=== PATIENT | female | born 1960 | race Caucasian/White ===

== ENCOUNTER 2018-07-15 20:19 | Emergency (ER) | payer MEDICARE, MEDICAID ==
[~2018-07-15] VITALS: Ht 152.4 cm; Wt 59.0 kg
[~2018-07-15 20:19] MED LIST: ALBU2TAB4 NEB; AMLO5TAB13 PO; GUAI600T23 PO; HYDR25TA4 PO; METO25TA5 PO; MONT4CHW9 PO; POM EACHNOSTRI; TRAZ100T2 PO
[2018-07-15 20:28] VITALS: BP 123/89
[2018-07-15] MEDS ORDERED: HYDROcodone-ACET 5/325MG TAB PO ONE (20:45)
== END 2018-07-15 22:39 | disposition home or self-care (01) ==
LOC: ER 20:19
DX: M25.571 Pain in right ankle and joints of right foot (principal); J44.9 Chronic obstructive pulmonary disease, unspecified; I10 Essential (primary) hypertension; F17.210 Nicotine dependence, cigarettes, uncomplicated; Z90.49 Acquired absence of other specified parts of digestive tract; Z88.1 Allergy status to other antibiotic agents; Z79.899 Other long term (current) drug therapy
CPT/HCPCS: 73600

== ENCOUNTER 2019-03-30 08:58 | Emergency (ER) | payer MEDICARE, MEDICAID ==
[~2019-03-30] VITALS: Ht 152.4 cm; Wt 63.5 kg
[~2019-03-30 08:58] MED LIST changes: -AMLO5TAB13 PO; +AMLO5TAB15 PO; +ARIP1TAB7 PO; +ESCI10TA PO; -GUAI600T23 PO; +HYDR-3682 PO; +LEVO500T21 PO; +TRAZ-220 PO; -TRAZ100T2 PO
[2019-03-30 10:22] LABS: Anion Gap 8 (5-15); Blood Urea Nitrogen 13 mg/dL (7-18); Carbon Dioxide 29 mmol/L (21-32); Chloride 100 mmol/L (98-107); Glucose 104 mg/dL (74-106); Magnesium 2.3 mg/dL (1.6-2.6); Potassium 3.1 mmol/L (3.5-5.1); Sodium 137 mmol/L (136-145)
[2019-03-30 10:27] LABS: Alanine Aminotransferase 15 U/L (13-56); Alkaline Phosphatase 87 U/L (45-117); Aspartate Aminotransferase 17 U/L (15-37); BUN/Creatinine Ratio 11.2; Bilirubin, Total 0.5 mg/dL (0.2-1.0); GFR African American 62 mL/min; GFR Non-African American 51 mL/min; Total Protein 8.1 g/dL (6.4-8.2)
[2019-03-30] MEDS ORDERED: predniSONE 20 MG TAB PO ONE (11:15)
[2019-03-30 11:23] LABS: Basophils # (auto) 0.1 uL; Basophils % (auto) 0.8 % (0.0-2.0); Eosinophils # (auto) 0.3 uL; Eosinophils % (auto) 3.4 % (0.0-7.0); Hematocrit 28.8 % (36.0-46.0); Hemoglobin 9.7 g/dL (12.2-16.2); Lymphocytes # (auto) 1.6 uL; Lymphocytes % (auto) 20.4 % (10.0-50.0); Mean Corpuscular Hemoglobin 27.8 pg (28.0-32.0); Mean Corpuscular Hgb Conc. 33.8 g/dL (32.0-36.0); Mean Corpuscular Volume 82.2 fL (80.0-100.0); Monocytes # (auto) 0.6 uL; Monocytes % (auto) 7.5 % (0.0-12.0); Neutrophils # (auto) 5.3 uL; Neutrophils % (auto) 67.9 % (37.0-80.0); Platelet Count (auto) 403 10^3/uL (140-450); Red Cell Distribution Width 15.4 % (11.8-14.3); White Blood Cell 7.8 10^3/uL (4.4-10.8)
[2019-03-30 11:44] LABS: INR 1.01 (0.9-1.15); Partial Thromboplastin Time 27.1 sec (23.64-32.05)
[2019-03-30 12:31] LABS: Urine Bacteria NONE SEEN /hpf (None Seen); Urine Blood Negative /uL (Negative); Urine Specific Gravity 1.005 (1.001-1.035); Urine WBC 6 /hpf (0 - 5)
[2019-03-30 13:25] VITALS: BP 131/81
== END 2019-03-30 13:20 | disposition home or self-care (01) ==
LOC: ER 08:58
DX: G51.0 Bell's palsy (principal); J44.9 Chronic obstructive pulmonary disease, unspecified; I10 Essential (primary) hypertension; F17.210 Nicotine dependence, cigarettes, uncomplicated; Z90.49 Acquired absence of other specified parts of digestive tract
CPT/HCPCS: 36415; 70450; 71046; 80053; 81001; 83735; 83880; 84484; 85025; 85610; 85730; 93005; 94761; 99284; J7512

== ENCOUNTER 2019-05-19 08:03 | Emergency (ER) | payer MEDICARE, MEDICAID ==
[~2019-05-19] VITALS: Ht 152.4 cm; Wt 61.7 kg
[2019-05-19 08:18] VITALS: BP 122/81
[2019-05-19] MEDS ORDERED: KETOROLAC TROMETH 60MG/2ML VIAL IM ONE (09:15)
== END 2019-05-19 09:30 | disposition home or self-care (01) ==
LOC: ER 08:05
DX: S93.402A Sprain of unspecified ligament of left ankle, initial encounter (principal); J44.9 Chronic obstructive pulmonary disease, unspecified; I10 Essential (primary) hypertension; F17.210 Nicotine dependence, cigarettes, uncomplicated; F12.90 Cannabis use, unspecified, uncomplicated; Z88.1 Allergy status to other antibiotic agents; Z79.899 Other long term (current) drug therapy; Z90.49 Acquired absence of other specified parts of digestive tract
CPT/HCPCS: 73610; 96372; 99283; J1885

== ENCOUNTER 2019-10-21 14:02 | Inpatient (IN) | payer MEDICARE, MEDICAID ==
[~2019-10-21] VITALS: Ht 152.4 cm; Wt 68.1 kg
[~2019-10-21 14:02] MED LIST changes: +BACL10TA PO; +FLUC100T34 PO; +GABA300C10 PO; -HYDR-3682 PO; +LEV50T PO; -LEVO500T21 PO; -METO25TA5 PO; -MONT4CHW9 PO; +POM; -POM EACHNOSTRI; -TRAZ-220 PO
[2019-10-21] MEDS ORDERED: ALBUTEROL SULF 2.5 MG/0.5ML(0.5%) NEB SOLN NEB ONE ×2 (14:15→16:15)
[2019-10-21] MEDS ORDERED: IPRATROPIUM BROM 0.5 MG/2.5ML INH SOL NEB ONE ×2 (14:15→16:15)
[2019-10-21 14:36] LABS: Basophils # (auto) 0 10 ^3/uL (0-0.2); Basophils % (auto) 0.7 % (0.0-2.0); Eosinophils # (auto) 0.1 10 ^3/uL (0-0.8); Eosinophils % (auto) 2.5 % (0.0-7.0); Hematocrit 41.5 % (36.0-46.0); Hemoglobin 14.2 g/dL (12.2-16.2); Lymphocytes % (auto) 18.4 % (10.0-50.0); Mean Corpuscular Hemoglobin 29.9 pg (28.0-32.0); Mean Corpuscular Hgb Conc. 34.1 g/dL (32.0-36.0); Mean Corpuscular Volume 87.7 fL (80.0-100.0); Monocytes # (auto) 0.6 10 ^3/uL (0-1.3); Monocytes % (auto) 10.5 % (0.0-12.0); Neutrophils # (auto) 3.6 10 ^3/uL (1.6-8.6); Neutrophils % (auto) 67.9 % (37.0-80.0); Nucleated Red Blood Cells % 0.2 %; Platelet Count (auto) 265 10^3/uL (140-450); Red Blood Cells 4.73 10^6/uL (4.0-5.20); Red Cell Distribution Width 15.1 % (11.8-14.3); White Blood Cell 5.4 10^3/uL (4.4-10.8)
[2019-10-21 14:52] LABS: Alanine Aminotransferase 20 U/L (13-56); Albumin 3.7 g/dL (3.4-5.0); Anion Gap 6 (5-15); Aspartate Aminotransferase 21 U/L (15-37); BUN/Creatinine Ratio 13.5; Blood Urea Nitrogen 10 mg/dL (7-18); Calcium 8.7 mg/dL (8.5-10.1); Carbon Dioxide 25 mmol/L (21-32); Chloride 105 mmol/L (98-107); GFR African American 103 mL/min; GFR Non-African American 85 mL/min; Glucose 126 mg/dL (74-106); Potassium 3.4 mmol/L (3.5-5.1); Sodium 136 mmol/L (136-145)
[2019-10-21 14:59] LABS: Alkaline Phosphatase 84 U/L (45-117); Bilirubin, Total 0.5 mg/dL (0.2-1.0); Total Protein 7.9 g/dL (6.4-8.2)
[2019-10-21] MEDS ORDERED: methylPREDNISolone SOD SUCC 125 MG/2 ML VL IV ONE (16:15)
[2019-10-21] MEDS ORDERED: cefTRIAXone 1GM/50ML D5W 50 ML IV ONE (16:15)
[2019-10-21] MEDS ORDERED: ONDANSETRON HCL 4 MG/2 ML VIAL IV PRN (20:45)
[2019-10-21] MEDS ORDERED: POTASSIUM CHL 20 Meq TABLET PO ONE (20:45)
[2019-10-21 20:51] VITALS: BP 131/89
[2019-10-21] MEDS ORDERED: MORPHINE SULF INJ 2 MG/ML SYRINGE 1ML IV PRN (21:30)
[2019-10-21] MEDS ORDERED: NITROGLYCERIN 0.4 MG SL TAB SL PRN (21:30)
[2019-10-21 21:52] LABS: Urine WBC None Seen /hpf (0 - 5)
[2019-10-21] MEDS: TEMAZEPAM 15 MG CAP PO PRN (22:21)
[2019-10-21 22:22] LABS: Urine Bacteria NONE SEEN /hpf (None Seen); Urine Blood Negative /uL (Negative); Urine Specific Gravity 1.012 (1.001-1.035)
[2019-10-21] MEDS: FAMOTIDINE 20 MG TAB PO SCH (22:47)
[2019-10-21 22:50] VITALS: BP 142/93
--- NOTE | 2019-10-21 23:00 | NUR ---
Telemetry admit from ER TONG PURCELL admitted to Telemetry unit. Patient oriented to Danica strickland RN, unit, room, bed, and unit policies regarding patient care and visiting hours. Patient now on continuous telemetry monitoring, tele box #[id number] and telemetry reading on arrival to unit is SINUS RHYTHM. Patient placed on bedside oxygen, weighed by bedscale and encouraged to call if they need something. All questions and concerns addressed, patient verbalized understanding.
[2019-10-21] MEDS ORDERED: ASPI-231 PO (23:58)
[2019-10-21] MEDS ORDERED: ALPR0.254 PO (23:59)
[2019-10-22] MEDS: IPRATROPIUM BROM 0.5 MG/2.5ML INH SOL NEB SCH ×5 (00:09→23:46)
[2019-10-22] MEDS: ALBUTEROL SULF 2.5 MG/0.5ML(0.5%) NEB SOLN NEB SCH ×5 (00:09→23:46)
[2019-10-22] MEDS: ACETAMINOPHEN 325 MG TAB PO PRN (02:13)
[2019-10-22 03:11] VITALS: BP 128/82
--- NOTE | 2019-10-22 05:40 | NUR ---
SOB PATIENT WOKE UP COUGHING, BEGAN WHEEZING AND HAVING SOB SPO2 AT 91% ON 2L NASAL CANNULA. PATIENT RR AT 28/MIN EDUCATED PATIENT TO TAKE DEEP BREATHS, FOCUS ON BREATHING. RT PAGED FOR BREATHING TREATMENT
[2019-10-22 06:11] VITALS: BP 129/80
[2019-10-22] MEDS: LEVOTHYROXINE SODIUM 50 MCG TAB PO SCH (06:11)
[2019-10-22 06:43] LABS: Basophils # (auto) 0 10 ^3/uL (0-0.2); Basophils % (auto) 0.1 % (0.0-2.0); Eosinophils # (auto) 0 10 ^3/uL (0-0.8); Hematocrit 39.4 % (36.0-46.0); Hemoglobin 13.4 g/dL (12.2-16.2); Lymphocytes # (auto) 0.7 10 ^3/uL (0.4-5.4); Mean Corpuscular Hemoglobin 30.2 pg (28.0-32.0); Mean Corpuscular Hgb Conc. 33.9 g/dL (32.0-36.0); Mean Corpuscular Volume 88.9 fL (80.0-100.0); Monocytes # (auto) 0.1 10 ^3/uL (0-1.3); Monocytes % (auto) 2.5 % (0.0-12.0); Neutrophils # (auto) 4.8 10 ^3/uL (1.6-8.6); Neutrophils % (auto) 84.4 % (37.0-80.0); Nucleated Red Blood Cells % 0.1 %; Platelet Count (auto) 271 10^3/uL (140-450); Red Blood Cells 4.43 10^6/uL (4.0-5.20); Red Cell Distribution Width 14.9 % (11.8-14.3); White Blood Cell 5.7 10^3/uL (4.4-10.8)
--- NOTE | 2019-10-22 06:55 | NUR ---
RT AT BEDSIDE PATIENT GETTING BREATHING TREATMENT
[2019-10-22 06:56] LABS: Calcium 8.9 mg/dL (8.5-10.1); Potassium 3.7 mmol/L (3.5-5.1)
[2019-10-22 06:58] LABS: BUN/Creatinine Ratio 17.6
--- NOTE | 2019-10-22 07:29 | NUR ---
CLOSING PATIENT RESTING IN BED, NO SIGNS OF DISTRESS NOTED. CARE ENDORSED TO DAYSHIFT RN. ENDORSED TO DAYSHIFT RN THAT PATIENT WANTS HER HOME MEDS INPATIENT. PATIENT WORRIED ABOUT GETTING HER DAILY XANAX, GABAPENTIN, AND BP MEDICATIONS. MED REC COMPLETED.
[2019-10-22] MEDS: cefTRIAXone 1GM/50ML D5W 50 ML IV SCH (08:46)
[2019-10-22] MEDS: FAMOTIDINE 20 MG TAB PO SCH ×2 (08:47→21:32)
[2019-10-22] MEDS: amLODIPine BESYLATE 5 MG TAB PO SCH (08:47)
[2019-10-22 09:12] VITALS: BP 133/76
--- NOTE | 2019-10-22 12:00 | NUR ---
IV insertion IV access obtained, via clean sterile technique by inserting 22 gauge catheter at left forearm after 1 attempt. IV secured properly. No trauma to site. Patient tolerated well.
[2019-10-22] MEDS ORDERED: AZITHROMYCIN 500MG/ 250ML 250 ML IV ONE (12:30)
[2019-10-22 12:50] VITALS: BP 138/88
[2019-10-22] MEDS: methylPREDNISolone SOD SUCC 125 MG/2 ML VL IV SCH ×2 (12:54→21:32)
[2019-10-22] MEDS: ALPRAZolam 0.5 MG TAB PO PRN ×2 (12:56→20:58)
[2019-10-22 13:13] LABS: Amphetamine Screen, Urine NEGATIVE (NEGATIVE); Barbiturate Scree,Urine NEGATIVE (NEGATIVE); Benzodiazephine Screen, Urine NEGATIVE (NEGATIVE); Cannabinoid Screen, Urine NEGATIVE (NEGATIVE); Cocaine Screen, Urine NEGATIVE (NEGATIVE); Opiate Scree,Urine NEGATIVE (NEGATIVE); Phencyclidine Screen, Urine NEGATIVE (NEGATIVE)
[2019-10-22 16:59] VITALS: BP 126/87
[2019-10-22] MEDS: BUDESONIDE (INHALATION) 0.5 MG/2 ML NEB NEB SCH (18:09)
--- NOTE | 2019-10-22 19:30 | NUR ---
OPENING NOTE REPORT RECEIVED FROM DAY SHIFT RN PATIENT IS A/OX4 RESTING COMFORTABLY IN BED. ACCORDION DRAINAGE REMOVED TODAY. DRESSING TO LEFT ABDOMEN IS CLEAN/DRY/INTACT. PATIENT DENIES ANY PAIN TO SITE. POC DISCUSSED WITH PATIENT, ALL QUESTIONS ANSWERED. WILL MONITOR Q1H PRN THROUGHOUT SHIFT, CALL LIGHT WITHIN REACH. Addendum: 10/22/19 at 2106 by Danica Melvin RN DISREGARD NOTE WRONG PATIENT
--- NOTE | 2019-10-22 19:31 | NUR ---
OPENING NOTE REPORT RECEIVED FROM DAY SHIFT RN PATIENT IS A/OX4 RESTING IN BED. NO S/S OF SOB OR DISTRESS NOTED. PATIENT ON 2L NASAL CANNULA. PATIENT STATES SHE JUST RECEIVED HER BREATHING TREATMENT. IV INTACT AND PATENT TO LEFT FOREARM. PHYSICAL ASSESSMENT DONE-SEE INTERVENTIONS. POC DISCUSSED, ALL QUESTIONS ANSWERED. WILL MONITOR Q1H PRN THROUGHOUT SHIFT, CALL LIGHT WITHIN REACH.
[2019-10-22 22:00] VITALS: BP 136/96
[2019-10-22] MEDS ORDERED: ALBUTEROL SULF 2.5 MG/0.5ML(0.5%) NEB SOLN NEB PRN (22:15)
[2019-10-23] MEDS: TEMAZEPAM 15 MG CAP PO PRN ×2 (00:49→21:08)
[2019-10-23 05:00] VITALS: BP 150/81
[2019-10-23] MEDS: BUDESONIDE (INHALATION) 0.5 MG/2 ML NEB NEB SCH ×2 (06:41→22:15)
[2019-10-23] MEDS: IPRATROPIUM BROM 0.5 MG/2.5ML INH SOL NEB SCH ×5 (06:41→22:14)
[2019-10-23] MEDS: ALBUTEROL SULF 2.5 MG/0.5ML(0.5%) NEB SOLN NEB SCH ×5 (06:41→22:14)
[2019-10-23] MEDS: LEVOTHYROXINE SODIUM 50 MCG TAB PO SCH (07:01)
--- NOTE | 2019-10-23 07:26 | NUR ---
CLOSING PATIENT IS RESTING IN BED, JUST RECEIVED BREATHING TREATMENT FROM RT. CARE ENDORSED TO DAY SHIFT RN TO ASSUME CARE
--- NOTE | 2019-10-23 08:00 | NUR ---
Morning note patient resting in bed with even and unlabored respirations on 2LPM NC, no distress noted. Instructed patient on POC, fall precautions and to call for assistance as needed. Patient verbalized understanding. Fall precautions in place with call light within reach. BSC at bedside.
[2019-10-23 09:00] VITALS: BP 120/76
[2019-10-23] MEDS: FAMOTIDINE 20 MG TAB PO SCH ×2 (09:45→21:08)
[2019-10-23] MEDS: ALPRAZolam 0.5 MG TAB PO PRN ×2 (09:45→18:58)
[2019-10-23] MEDS: methylPREDNISolone SOD SUCC 125 MG/2 ML VL IV SCH ×2 (09:45→21:08)
[2019-10-23] MEDS: ACETAMINOPHEN 325 MG TAB PO PRN (09:45)
[2019-10-23] MEDS: cefTRIAXone 1GM/50ML D5W 50 ML IV SCH (09:45)
[2019-10-23] MEDS: amLODIPine BESYLATE 5 MG TAB PO SCH (09:45)
--- NOTE | 2019-10-23 09:45 | NUR ---
RE: Medications This RN scanned medications at bedside although documentation was not saved. Medication administration documented accordingly.
[2019-10-23] MEDS: AZITHROMYCIN 500MG/ 250ML 250 ML IV SCH (10:30)
--- NOTE | 2019-10-23 12:11 | NUR ---
was at bedside - Dr. Estelle Herrera This RN was at bedside. Orders received and read back to verify.
[2019-10-23 13:00] VITALS: BP 120/86
--- NOTE | 2019-10-23 13:31 | NUR ---
RE: Medications This RN removed PRN pain medication and PRN cough medication to administer to patient for reported pain and coughing. Upon entering patient's room, patient is resting in a right lateral position with eyes closed, respirations even and unlabored with no distress noted. Call light within reach. Medications returned to medication pyxis.
[2019-10-23] MEDS: guaiFENesin-DM 100/10mg/5ml SYR PO PRN (16:03)
[2019-10-23] MEDS: HYDROcodone-ACET 5/325MG TAB PO PRN (16:05)
[2019-10-23 17:00] VITALS: BP 123/76
--- NOTE | 2019-10-23 18:59 | NUR ---
Closing note patient sitting in bed with labored breathing, patient able to speak in sentences. Patient reports she just returned to bed after using the BSC. Pulse ox 88% on 2LPM NC. RT at bedside for breathing treatment. Fall precautions in place with call light within reach.
--- NOTE | 2019-10-23 19:15 | NUR ---
Care endorsed to EUSEBIO Felton.
[2019-10-23 22:00] VITALS: BP 120/72
[2019-10-24] VITALS (7 sets, daily range): BP systolic 117–165; BP diastolic 74–106
[2019-10-24] MEDS: ALBUTEROL SULF 2.5 MG/0.5ML(0.5%) NEB SOLN NEB SCH ×6 (02:03→22:12)
[2019-10-24] MEDS: IPRATROPIUM BROM 0.5 MG/2.5ML INH SOL NEB SCH ×6 (02:03→22:12)
[2019-10-24] MEDS: HYDROcodone-ACET 5/325MG TAB PO PRN ×3 (02:34→19:37)
[2019-10-24] MEDS: guaiFENesin-DM 100/10mg/5ml SYR PO PRN ×2 (02:34→17:45)
[2019-10-24] MEDS: LEVOTHYROXINE SODIUM 50 MCG TAB PO SCH (06:33)
--- NOTE | 2019-10-24 08:03 | NUR ---
received patient from retail shift supervisor. patient alert and oriented. no complaints of pain at this time
[2019-10-24] MEDS: cefTRIAXone 1GM/50ML D5W 50 ML IV SCH (08:22)
[2019-10-24] MEDS: ALPRAZolam 0.5 MG TAB PO PRN ×2 (09:56→18:05)
[2019-10-24] MEDS: FAMOTIDINE 20 MG TAB PO SCH ×2 (09:57→22:50)
[2019-10-24] MEDS: amLODIPine BESYLATE 5 MG TAB PO SCH (09:57)
[2019-10-24] MEDS: BUDESONIDE (INHALATION) 0.5 MG/2 ML NEB NEB SCH ×2 (11:06→22:12)
--- NOTE | 2019-10-24 16:36 | NUR ---
MIDLINE 20cm internally w/ 0cm externally.
--- NOTE | 2019-10-24 16:36 | NUR ---
MIDLINE placement Patient/Patient significant other educated on need for MIDLINE placement. All risks and benefits explained and all questions and concerns addressed prior to procedure. Noted past medical history and allergies with no contraindications. INR and Plt counts within acceptable range. 4 fr MIDLINE inserted via right brachial vein using [employer] US and Tip Location System. Sterile technique with maximum barrier precautions utilized. Blood return obtained from the single lumen and it flushed easily with NS using proper technique. MIDLINE secured with Stat-lock; biodisc and occlusive dressing applied. Less than 5ml EBL noted during procedure. *Baseline Arm Circumference 31cm at 1cm above insertion site. PICC lot # [id number]. Note:
--- NOTE | 2019-10-24 16:37 | NUR ---
OK to use MIDLINE Jalen Clifton. notified now OK to use MIDLINE.
[2019-10-24] MEDS: AZITHROMYCIN 500MG/ 250ML 250 ML IV SCH (16:47)
[2019-10-24] MEDS: methylPREDNISolone SOD SUCC 125 MG/2 ML VL IV SCH ×2 (16:47→22:50)
[2019-10-24] MEDS: TEMAZEPAM 15 MG CAP PO PRN (22:51)
[2019-10-25] MEDS: ALBUTEROL SULF 2.5 MG/0.5ML(0.5%) NEB SOLN NEB SCH ×6 (03:30→22:22)
[2019-10-25] MEDS: IPRATROPIUM BROM 0.5 MG/2.5ML INH SOL NEB SCH ×6 (03:30→22:22)
[2019-10-25 05:00] VITALS: BP 114/76
[2019-10-25] MEDS: LEVOTHYROXINE SODIUM 50 MCG TAB PO SCH (06:29)
[2019-10-25] MEDS: BUDESONIDE (INHALATION) 0.5 MG/2 ML NEB NEB SCH ×2 (06:29→22:22)
[2019-10-25 08:00] VITALS: BP 150/93
[2019-10-25 08:57] VITALS: BP 150/93
[2019-10-25] MEDS: cefTRIAXone 1GM/50ML D5W 50 ML IV SCH (09:23)
[2019-10-25] MEDS: AZITHROMYCIN 500MG/ 250ML 250 ML IV SCH (10:40)
[2019-10-25] MEDS: amLODIPine BESYLATE 5 MG TAB PO SCH (10:40)
[2019-10-25] MEDS: methylPREDNISolone SOD SUCC 125 MG/2 ML VL IV SCH ×2 (10:40→21:38)
[2019-10-25] MEDS: FAMOTIDINE 20 MG TAB PO SCH ×2 (10:41→21:38)
[2019-10-25 12:30] VITALS: BP 121/67
[2019-10-25] MEDS: ALPRAZolam 0.5 MG TAB PO PRN (15:16)
[2019-10-25] MEDS: guaiFENesin-DM 100/10mg/5ml SYR PO PRN (15:17)
[2019-10-25 17:14] VITALS: BP 120/64
[2019-10-25] MEDS: HYDROcodone-ACET 5/325MG TAB PO PRN ×3 (20:00→21:19)
[2019-10-25] MEDS: TEMAZEPAM 15 MG CAP PO PRN (21:38)
[2019-10-25 22:00] VITALS: BP 137/85
[2019-10-26] MEDS: ALPRAZolam 0.5 MG TAB PO PRN ×2 (00:11→15:03)
[2019-10-26] MEDS: IPRATROPIUM BROM 0.5 MG/2.5ML INH SOL NEB SCH ×4 (02:41→14:33)
[2019-10-26] MEDS: ALBUTEROL SULF 2.5 MG/0.5ML(0.5%) NEB SOLN NEB SCH ×4 (02:41→14:33)
[2019-10-26 05:00] VITALS: BP 131/92
[2019-10-26] MEDS: LEVOTHYROXINE SODIUM 50 MCG TAB PO SCH (06:34)
[2019-10-26 08:00] VITALS: BP 126/90
--- NOTE | 2019-10-26 08:00 | NUR ---
PATIENT ALERT AND RELAXING. NO SIGNS OF DISTRESS AT THIS TIME
[2019-10-26 08:44] VITALS: BP 126/90
[2019-10-26] MEDS: cefTRIAXone 1GM/50ML D5W 50 ML IV SCH (09:15)
[2019-10-26] MEDS ORDERED: AZITHROMYCIN 250 MG TAB PO SCH (10:00)
[2019-10-26] MEDS: methylPREDNISolone SOD SUCC 125 MG/2 ML VL IV SCH (10:14)
[2019-10-26] MEDS: amLODIPine BESYLATE 5 MG TAB PO SCH (10:15)
[2019-10-26] MEDS: FAMOTIDINE 20 MG TAB PO SCH (10:16)
[2019-10-26] MEDS: BUDESONIDE (INHALATION) 0.5 MG/2 ML NEB NEB SCH (10:25)
[2019-10-26 12:56] VITALS: BP 142/106
[2019-10-26 14:08] VITALS: BP 142/106
--- NOTE | 2019-10-26 15:12 | NUR ---
ALL IV ACCESS DISCONTINUED. TELEMETRY BOX REMOVED AND RETURNED TO TELEMETRY DEPARTMENT. ALL DISCHARGE INSTRUCTIONS GIVEN. ALL DISCHARGE PAPERWORK SIGNED.
--- NOTE | 2019-10-26 15:35 | NUR ---
PATIENT DISCHARGED HOME WITH NEIGHBOR
== END 2019-10-26 15:30 | disposition home or self-care (01) | DRG 189 ==
LOC: ER 14:02 → TELE 14:03 → TELE-WESTW 22:50
PROVIDERS: ADMIT Nurse Practitioner; ATTEND Family Medicine
DX: J96.21 Acute and chronic respiratory failure with hypoxia (principal); J44.1 Chronic obstructive pulmonary disease with (acute) exacerbation; J44.0 Chronic obstructive pulmonary disease with (acute) lower respiratory infection; I10 Essential (primary) hypertension; E87.6 Hypokalemia; E03.9 Hypothyroidism, unspecified; F41.9 Anxiety disorder, unspecified; G89.4 Chronic pain syndrome; F12.90 Cannabis use, unspecified, uncomplicated; J20.9 Acute bronchitis, unspecified; F17.210 Nicotine dependence, cigarettes, uncomplicated; F31.9 Bipolar disorder, unspecified; Z82.49 Family history of ischemic heart disease and other diseases of the circulatory system; Z83.3 Family history of diabetes mellitus; Z99.81 Dependence on supplemental oxygen; Z90.49 Acquired absence of other specified parts of digestive tract
CPT/HCPCS: 36415; 36600; 71046; 80048; 80053; 80307; 81001; 82805; 83605; 84484; 85025; 87804; 93005; 94640; 96365; 96366; 96375; 97116; 97163; 97530; G0378; J0696

== ENCOUNTER 2020-06-28 06:45 | Inpatient (IN) | payer MEDICARE, MEDICAID ==
[~2020-06-28] VITALS: Ht 152.4 cm; Wt 64.8 kg
[~2020-06-28 06:45] MED LIST changes: +ALPR0.254 PO; -AMLO5TAB15 PO; -ARIP1TAB7 PO; +ASPI-231 PO; -BACL10TA PO; -ESCI10TA PO
[2020-06-28] MEDS ORDERED: cefTRIAXone 1GM/50ML D5W 50 ML IV ONE (11:15)
[2020-06-28] MEDS ORDERED: SODIUM CHLORIDE 0.9% 1,000 ML IV ONE (11:15)
[2020-06-28 12:22] LABS: Basophils # (auto) 0.1 10 ^3/uL (0-0.2); Basophils % (auto) 0.8 % (0.0-2.0); Eosinophils # (auto) 0.3 10 ^3/uL (0-0.8); Eosinophils % (auto) 4.7 % (0.0-7.0); Hemoglobin 13.5 g/dL (12.2-16.2); Lymphocytes # (auto) 2.2 10 ^3/uL (0.4-5.4); Lymphocytes % (auto) 34.5 % (10.0-50.0); Mean Corpuscular Hemoglobin 29.7 pg (28.0-32.0); Mean Corpuscular Hgb Conc. 33.9 g/dL (32.0-36.0); Mean Corpuscular Volume 87.8 fL (80.0-100.0); Monocytes # (auto) 0.5 10 ^3/uL (0-1.3); Monocytes % (auto) 7.8 % (0.0-12.0); Neutrophils # (auto) 3.4 10 ^3/uL (1.6-8.6); Neutrophils % (auto) 52.2 % (37.0-80.0); Nucleated Red Blood Cells % 0.1 %; Platelet Count (auto) 316 10^3/uL (140-450); Red Blood Cells 4.55 10^6/uL (4.0-5.20); Red Cell Distribution Width 16.2 % (11.8-14.3); White Blood Cell 6.5 10^3/uL (4.4-10.8)
[2020-06-28 12:39] LABS: Albumin 3.7 g/dL (3.4-5.0); Anion Gap 5 (5-15); Aspartate Aminotransferase 15 U/L (15-37); BUN/Creatinine Ratio 23.4; Blood Urea Nitrogen 18 mg/dL (7-18); Calcium 8.7 mg/dL (8.5-10.1); Carbon Dioxide 24 mmol/L (21-32); Chloride 109 mmol/L (98-107); GFR African American 99 mL/min; GFR Non-African American 82 mL/min; Glucose 82 mg/dL (74-106); Potassium 3.9 mmol/L (3.5-5.1); Sodium 138 mmol/L (136-145)
[2020-06-28 12:44] LABS: Alanine Aminotransferase 20 U/L (13-56); Alkaline Phosphatase 79 U/L (45-117); Bilirubin, Total 0.4 mg/dL (0.2-1.0); Total Protein 7.6 g/dL (6.4-8.2)
[2020-06-28] MEDS ORDERED: MORPHINE SULF INJ 2 MG/ML SYRINGE 1ML IV PRN ×3 (15:00→15:45)
[2020-06-28] MEDS ORDERED: NITROGLYCERIN 0.4 MG SL TAB SL PRN ×2 (15:00→15:45)
[2020-06-28 15:11] LABS: Urine Bacteria NONE SEEN /hpf (None Seen); Urine Blood Negative /uL (Negative); Urine Mucus FEW (None Seen); Urine Specific Gravity 1.027 (1.001-1.035); Urine WBC 1 /hpf (0 - 5)
[2020-06-28] MEDS ORDERED: methylPREDNISolone SOD SUCC 125 MG/2 ML VL IV ONE (15:15)
[2020-06-28] MEDS ORDERED: ESCI10TA PO (15:38)
[2020-06-28] MEDS ORDERED: MET25T PO (15:38)
[2020-06-28] MEDS ORDERED: ASPI1TAB19 PO (15:38)
[2020-06-28] MEDS ORDERED: FLUT1AER3 IN (15:38)
[2020-06-28] MEDS ORDERED: LEVO25TA6 PO ×3 (15:38→21:57)
[2020-06-28] MEDS ORDERED: AMLO5TAB15 PO (15:38)
[2020-06-28] MEDS ORDERED: ACETAMINOPHEN 325 MG TAB PO PRN (15:45)
[2020-06-28] MEDS ORDERED: ALUM & MAG HYDROX-SIMETH LIQ(MAALOX) 30 ML PO PRN (15:45)
[2020-06-28] MEDS ORDERED: DOCUSATE SOD 100 MG CAP PO PRN (15:45)
[2020-06-28] MEDS ORDERED: MELO1TAB73 PO ×2 (15:45→15:46)
[2020-06-28] MEDS ORDERED: AZITHROMYCIN 500MG/ 250ML 250 ML IV ONE (15:45)
[2020-06-28] MEDS ORDERED: ACETAMINOPHEN 500 MG TAB PO PRN (15:45)
[2020-06-28] MEDS ORDERED: SODIUM CHLORIDE 0.9% 1,000 ML IV SCH (15:45)
[2020-06-28] MEDS ORDERED: ONDANSETRON HCL 4 MG/2 ML VIAL IV PRN (15:45)
[2020-06-28] MEDS ORDERED: HYDROcodone-ACET 5/325MG TAB PO PRN (15:45)
[2020-06-28] MEDS ORDERED: IPRATROPIUM BROM 0.5 MG/2.5ML INH SOL NEB ONE (16:00)
[2020-06-28 16:19] LABS: Amphetamine Screen, Urine NEGATIVE (NEGATIVE); Barbiturate Scree,Urine NEGATIVE (NEGATIVE); Benzodiazephine Screen, Urine NEGATIVE (NEGATIVE); Cannabinoid Screen, Urine NEGATIVE (NEGATIVE); Cocaine Screen, Urine NEGATIVE (NEGATIVE); Opiate Scree,Urine NEGATIVE (NEGATIVE); Phencyclidine Screen, Urine NEGATIVE (NEGATIVE)
[2020-06-28 17:29] LABS: CRP High Sensitivity 0.3 mg/dL (< 0.3); Magnesium 2.4 mg/dL (1.6-2.6)
[2020-06-28 18:00] LABS: Cholesterol 166 mg/dL (< 200)
[2020-06-28 18:04] LABS: HDL Cholesterol 50 mg/dL (40-59); LDL Cholesterol 76 mg/dL (< 100); Triglycerides 198 mg/dL (< 150)
[2020-06-28] MEDS: LORazepam 0.5 MG TAB PO PRN (18:38)
[2020-06-28] MEDS: IPRATROPIUM BROM 0.5 MG/2.5ML INH SOL NEB SCH ×2 (19:19→21:53)
--- NOTE | 2020-06-28 20:40 | NUR ---
Telemetry admit from ER Patient admitted to Telemetry unit. Patient oriented to primary RN, unit, room, bed, and unit policies regarding patient care and visiting hours. Patient now on continuous telemetry monitoring, tele box # [id number] and telemetry reading on arrival to unit is sinus tachycardia 110s. Patient placed on bedside oxygen 2L NC, weighed by bedscale and encouraged to call if they need something. All questions and concerns addressed, patient verbalized understanding. Safety precautions maintained bed is in lowest position and locked, bed rails 2x.
[2020-06-28 21:37] VITALS: BP 114/81
[2020-06-28] MEDS ORDERED: BACL20TA PO (21:57)
[2020-06-28 22:00] VITALS: BP_SYST 114; BP_SYST 143; BP_DIAS 74; BP_DIAS 81
[2020-06-28] MEDS ORDERED: ALBUTEROL SULF HFA 90MCG INH 200DOSE IN SCH (22:00)
[2020-06-28] MEDS: ATORVASTATIN 20 MG TAB PO SCH (22:00)
[2020-06-28] MEDS: GABAPENTIN 300 MG CAP PO SCH (22:00)
[2020-06-28] MEDS ORDERED: BUDESONIDE (INHALATION) 180 MCG IH IN SCH (22:00)
[2020-06-28] MEDS: METOPROLOL TARTRATE 25 MG TAB PO SCH (22:47)
[2020-06-28 23:58] VITALS: BP 114/81
[2020-06-29] MEDS: LORazepam 0.5 MG TAB PO PRN ×3 (02:39→20:49)
[2020-06-29] MEDS: IPRATROPIUM BROM 0.5 MG/2.5ML INH SOL NEB SCH ×6 (02:55→22:00)
[2020-06-29] MEDS: ALBUTEROL SULF 2.5 MG/0.5ML(0.5%) NEB SOLN NEB SCH ×6 (02:56→22:00)
[2020-06-29] MEDS ORDERED: methylPREDNISolone SOD SUCC 125 MG/2 ML VL IV ONE (03:15)
[2020-06-29 05:00] VITALS: BP 111/65
[2020-06-29] MEDS: GABAPENTIN 300 MG CAP PO SCH ×3 (06:00→22:33)
[2020-06-29 06:11] LABS: Basophils # (auto) 0 10 ^3/uL (0-0.2); Basophils % (auto) 0.1 % (0.0-2.0); Eosinophils # (auto) 0 10 ^3/uL (0-0.8); Hematocrit 37.9 % (36.0-46.0); Hemoglobin 12.8 g/dL (12.2-16.2); Lymphocytes # (auto) 0.7 10 ^3/uL (0.4-5.4); Lymphocytes % (auto) 11.4 % (10.0-50.0); Mean Corpuscular Hemoglobin 29.7 pg (28.0-32.0); Mean Corpuscular Hgb Conc. 33.8 g/dL (32.0-36.0); Mean Corpuscular Volume 87.8 fL (80.0-100.0); Monocytes # (auto) 0.1 10 ^3/uL (0-1.3); Monocytes % (auto) 1.1 % (0.0-12.0); Neutrophils # (auto) 5.5 10 ^3/uL (1.6-8.6); Neutrophils % (auto) 87.4 % (37.0-80.0); Nucleated Red Blood Cells % 0.1 %; Platelet Count (auto) 296 10^3/uL (140-450); Red Blood Cells 4.32 10^6/uL (4.0-5.20); Red Cell Distribution Width 16.3 % (11.8-14.3); White Blood Cell 6.2 10^3/uL (4.4-10.8)
[2020-06-29 06:29] LABS: Potassium 4.1 mmol/L (3.5-5.1)
[2020-06-29 06:38] LABS: Albumin 3.4 g/dL (3.4-5.0); BUN/Creatinine Ratio 22.4; Bilirubin, Total 0.3 mg/dL (0.2-1.0); Calcium 8.6 mg/dL (8.5-10.1); Total Protein 7.1 g/dL (6.4-8.2)
[2020-06-29] MEDS: LEVOTHYROXINE SODIUM 25 MCG TAB PO SCH (06:48)
[2020-06-29] MEDS: BUDESONIDE (INHALATION) 0.5 MG/2 ML NEB NEB SCH ×2 (06:59→19:21)
--- NOTE | 2020-06-29 07:30 | NUR ---
STATUS PT RESTING IN BED AWAKE A&O, ON THE PHONE WITH HER . PT AND WERE EDUCATED ON POC AND WHITE BOARD UPDATED. O2 IN PLACE VIA NC, TELE IN PLACE AND MONITORED. PT HAS NO CURRENT COMPLAINTS OR S/S OF DISTRESS. WILL CONTINUE TO MONITOR.
[2020-06-29 09:00] VITALS: BP 113/82
[2020-06-29] MEDS ORDERED: ZINC SULFATE 220mg CAP or TAB PO SCH (10:00)
[2020-06-29] MEDS ORDERED: CHOLECALCIFEROL (VITD3) 2,000 UNIT CAP PO SCH (10:00)
[2020-06-29] MEDS ORDERED: methylPREDNISolone SOD SUCC 125 MG/2 ML VL IV SCH (10:00)
[2020-06-29] MEDS: AZITHROMYCIN 500MG/ 250ML 250 ML IV SCH (10:00)
[2020-06-29] MEDS ORDERED: ASCORBIC ACID 1,000 MG TAB PO SCH (10:00)
--- NOTE | 2020-06-29 10:45 | NUR ---
DR MARTINEZ AT BEDSIDE
[2020-06-29] MEDS: cefTRIAXone 1GM/50ML D5W 50 ML IV SCH (11:19)
[2020-06-29] MEDS: ASPirin-EC 81 mg tab PO SCH (11:20)
[2020-06-29] MEDS: ENOXAPARIN SOD 40 MG/0.4 ML SYRINGE SC SCH (11:20)
[2020-06-29] MEDS: amLODIPine BESYLATE 5 MG TAB PO SCH (11:21)
[2020-06-29] MEDS: METOPROLOL TARTRATE 25 MG TAB PO SCH ×2 (11:26→22:33)
--- NOTE | 2020-06-29 12:30 | NUR ---
DR MARTÍNEZ AT BEDSIDE ORDERS WRITTEN
--- NOTE | 2020-06-29 12:46 | NUR ---
TAKENT TO CT VIA WHEEL CHAIR
[2020-06-29 13:00] VITALS: BP 124/79
--- NOTE | 2020-06-29 14:40 | NUR ---
RT NOTIFIED RN THAT PT WAS TIGHT AND CONDITION SEEMS TO BE WORSENING. DR MARTÍNEZ PAGED TO NOTIFY. AWAITING RETURN CALL AND POSSIBLE ORDERS
[2020-06-29 17:00] VITALS: BP 149/89
[2020-06-29] MEDS: guaiFENesin 200 MG/10 ML UD GT PRN ×2 (17:57→20:49)
--- NOTE | 2020-06-29 19:45 | NUR ---
OPENING SHIFT NOTE Assumed care of patient who is A&O x4. Currently on 4L NC. Expiratory wheezes noted throughout bilaterally. Patient denies pain at this time. PIV in left upper arm intact and patent. Flushed with 10ml NS. POC discussed and patient verbalizes understanding. Bed is in low locked position with side rails up x2. Call light within reach and patient encouraged to call for assistance when needed. Will continue to monitor for changes PRN.
[2020-06-29 22:00] VITALS: BP 116/70
[2020-06-29] MEDS: methylPREDNISolone SOD SUCC 40 MG/ML VL IV SCH (22:32)
[2020-06-29] MEDS: ATORVASTATIN 20 MG TAB PO SCH (22:33)
[2020-06-29] MEDS: FAMOTIDINE 20 MG TAB PO SCH (22:34)
[2020-06-30] MEDS: IPRATROPIUM BROM 0.5 MG/2.5ML INH SOL NEB SCH ×6 (01:51→23:11)
[2020-06-30] MEDS: ALBUTEROL SULF 2.5 MG/0.5ML(0.5%) NEB SOLN NEB SCH ×6 (01:51→23:12)
[2020-06-30] MEDS: guaiFENesin 200 MG/10 ML UD GT PRN ×4 (02:19→20:10)
--- NOTE | 2020-06-30 03:05 | NUR ---
SHOWER ekg monitor tech removed and monitor techs notified that patient is currently in shower. Will resume continuous monitoring when patient is finished showering.
[2020-06-30] MEDS: LORazepam 0.5 MG TAB PO PRN ×3 (03:36→20:10)
[2020-06-30 05:00] VITALS: BP 110/82
[2020-06-30] MEDS: GABAPENTIN 300 MG CAP PO SCH ×3 (06:22→22:42)
[2020-06-30] MEDS: LEVOTHYROXINE SODIUM 25 MCG TAB PO SCH (06:22)
--- NOTE | 2020-06-30 07:00 | NUR ---
Opening Shift Note Received report from night nurse. Assumed care of patient, awake and alert. No S/S of distress/SOB or pain. Instructed on POC and to call for assist PRN, will continue to monitor for changes Q1hr and PRN.
[2020-06-30] MEDS: BUDESONIDE (INHALATION) 0.5 MG/2 ML NEB NEB SCH ×2 (07:23→23:12)
[2020-06-30 09:00] VITALS: BP 113/71
[2020-06-30] MEDS: cefTRIAXone 1GM/50ML D5W 50 ML IV SCH (10:07)
[2020-06-30] MEDS: ASPirin-EC 81 mg tab PO SCH (10:07)
[2020-06-30] MEDS: methylPREDNISolone SOD SUCC 40 MG/ML VL IV SCH ×2 (10:07→22:42)
[2020-06-30] MEDS: METOPROLOL TARTRATE 25 MG TAB PO SCH ×2 (10:08→22:00)
[2020-06-30] MEDS: amLODIPine BESYLATE 5 MG TAB PO SCH (10:09)
[2020-06-30] MEDS: FAMOTIDINE 20 MG TAB PO SCH ×2 (10:09→22:43)
[2020-06-30] MEDS: ENOXAPARIN SOD 40 MG/0.4 ML SYRINGE SC SCH (10:10)
[2020-06-30] MEDS: AZITHROMYCIN 500MG/ 250ML 250 ML IV SCH (10:55)
--- NOTE | 2020-06-30 11:38 | NUR ---
Dr. Maravilla at bedside.
[2020-06-30 13:00] VITALS: BP 138/95
[2020-06-30] MEDS ORDERED: ALBUTEROL SULF 2.5 MG/0.5ML(0.5%) NEB SOLN NEB ONE (14:30)
[2020-06-30 16:48] VITALS: BP 112/79
--- NOTE | 2020-06-30 20:00 | NUR ---
OPENING SHIFT NOTE Assumed care of patient who is A&O x4. Currently on 3L NC with reported SOB on exertion and noted cough. Expiratory wheezes throughout heard. Patient denies pain at this time. PIV in left upper arm is intact and patent. Flushed with 10ml NS. Patient is ambulatory without the use of assistive devices at baseline. POC discussed and patient verbalizes understanding. Bed is in low locked position with side rails up x2. Call light is within reach ans patient encouraged to call for assistance when needed. Will continue to monitor for changes PRN.
[2020-06-30] MEDS: ATORVASTATIN 20 MG TAB PO SCH (22:43)
[2020-06-30 23:39] VITALS: BP 130/91
[2020-07-01] MEDS: guaiFENesin 200 MG/10 ML UD GT PRN ×3 (00:07→10:43)
[2020-07-01] MEDS: LORazepam 0.5 MG TAB PO PRN ×2 (04:00→10:43)
--- NOTE | 2020-07-01 04:00 | NUR ---
Patient respirations are labored. Expiratory wheezes noted throughout bilaterally. Non-productive coughing noted. Spo2 on 3L NC is 92% Patient is fidgeting and appears anxious and restless. States, "I'm having a hard time. I'm scared". Patient instructed to breath slowly through her nose. Engaged in conversation with patient to distract her from her anxiety. Patient's breathing began to slow and become less labored. Spo2 increased to 94% Ativan 0.5mg administered for anxiety as ordered. Next med-neb treatment is due at 0600. Remained with patient until breathing was no longer labored and patient no longer fidgeting due to feeling anxious. Encouraged to call for assistance if she should feel this way again. Will continue to monitor for changes.
[2020-07-01 05:28] VITALS: BP 121/85
[2020-07-01] MEDS: IPRATROPIUM BROM 0.5 MG/2.5ML INH SOL NEB SCH ×3 (06:11→16:28)
[2020-07-01] MEDS: ALBUTEROL SULF 2.5 MG/0.5ML(0.5%) NEB SOLN NEB SCH ×3 (06:11→16:28)
[2020-07-01] MEDS: GABAPENTIN 300 MG CAP PO SCH ×3 (06:13→13:25)
[2020-07-01] MEDS: LEVOTHYROXINE SODIUM 25 MCG TAB PO SCH (06:14)
--- NOTE | 2020-07-01 06:44 | NUR ---
Patient provided hot tea per request. No distress noted at this time.
[2020-07-01 09:00] VITALS: BP 140/97
[2020-07-01] MEDS ORDERED: FAMO20TA10 PO (09:45)
[2020-07-01] MEDS ORDERED: DEXT1SYP9 PO (09:45)
[2020-07-01] MEDS ORDERED: AZIT500T PO (09:45)
[2020-07-01] MEDS ORDERED: AZITHROMYCIN 250 MG TAB PO SCH (10:00)
[2020-07-01] MEDS: ENOXAPARIN SOD 40 MG/0.4 ML SYRINGE SC SCH (10:43)
[2020-07-01] MEDS: methylPREDNISolone SOD SUCC 40 MG/ML VL IV SCH (10:43)
[2020-07-01] MEDS: METOPROLOL TARTRATE 25 MG TAB PO SCH (10:44)
[2020-07-01] MEDS: ASPirin-EC 81 mg tab PO SCH (10:44)
[2020-07-01] MEDS: FAMOTIDINE 20 MG TAB PO SCH (10:44)
[2020-07-01] MEDS: amLODIPine BESYLATE 5 MG TAB PO SCH (10:45)
[2020-07-01] MEDS: BUDESONIDE (INHALATION) 0.5 MG/2 ML NEB NEB SCH (12:03)
--- NOTE | 2020-07-01 12:10 | NUR ---
DR. MARTINEZ/ DR. MARTÍNEZ IN TO SEE PT. PT TO BE DC'D UPON HOME O2 ARRANGEMENT.
[2020-07-01 13:00] VITALS: BP 134/86
[2020-07-01 14:02] VITALS: BP 134/86
--- NOTE | 2020-07-01 15:58 | NUR ---
Assessment Patient is a 59-year-old female who is alert and oriented. Prior to admission patient lived home with her [place] and functioned independently. Patient can care for her own ADL's. Patient has a cane for home use. Patient will return home to her prior living arrangements post discharge and her will transport her home. Informed patient she has the right to participate in all discharge planning. Patient verbalized understanding and agreed to discharge plan. Regarding social service consult for home oxygen and home health safety evaluation, physical therapy, medication management and vitals. Patient has been on service with [facility] and would like to resume service with agency. Faxed clinical information to [facility]. Edgardo Adler with [facility] PH: [phone] patient has been accepted and service to start within 24-48hrs upon d.c day. [facility] and concentrate oxygen to home. Informed EUSEBIO Cat. Addendum: 07/01/20 at 1610 by SONYA GARCIA Amended: Links added.
[2020-07-01] MEDS ORDERED: IPRATROPIUM BROM 0.5 MG/2.5ML INH SOL ONE (16:03)
[2020-07-01] MEDS ORDERED: ALBUTEROL SULF 2.5 MG/0.5ML(0.5%) NEB SOLN ONE (16:03)
[2020-07-01] MEDS ORDERED: LEVALBUTEROL HCL 1.25 MG/3 ML NEB ONE (16:07)
--- NOTE | 2020-07-01 16:07 | NUR ---
PT AMBULATED TO RESTROOM WITH OXYGEN, ONCE BACK IN BED PT VERY SOB AND AGITATED. PT WHEEZING THROUGHOUT VS: 106, 24, 96% ON 4LNC, 151/70 PT STATES SHE COULD NOT CATCH HER BREATH. STAYED WITH PT- PT REPORTS FEELING BETTER. OBTAINED ORDER FOR XOPENEX, PT STATES SHE IS FEELING BETTER. PAGED DR. MARTINEZ FOR AWARENESS OF EVENT. WILL CONTINUE TO MONITOR.
--- NOTE | 2020-07-01 16:14 | NUR ---
DR. MARTÍNEZ MADE AWARE RADHA EVENT.
--- NOTE | 2020-07-01 16:25 | NUR ---
Post breathing tX pt reports she will go home. Pt states she is feeling better, she has nebulize machine at home, she is getting the oxygen at home, and that her helps at home. She states my is picking me up and I will go home.
--- NOTE | 2020-07-01 16:32 | NUR ---
Respiratory note: RT STAT TO ROOM OVERHEAD. ARRIVED AND PT IS TACHYPNEIC AND WHEEZING. PT GIVEN ALBUTEROL AND ATROVENT ONE TIME. HR THEN INCREASED TO 105 SO ONE TIME LEVALBUTEROL GIVEN ONE TIME.
[2020-07-01 17:00] VITALS: BP 132/83
--- NOTE | 2020-07-01 18:02 | NUR ---
DISCHARGE INSTRUCTIONS GIVEN TO PT. PT VERBALIZED UNDERSTANDING ON FOLLOW UP APPOINTMENT AND PRESCRIPTION ORDERS. EDUCATIONAL MATERIAL PROVIDED, ALL QUESTIONS AND CONCERNS ADDRESSED. TELE BOX REMOVED AND RETURNED TO TELE DEPT. REP FROM [facility] CONFIRMED HOME O2 DELIVERY. REPORTS DELIVERY. PT AWAITING TRANSPORT. CALL LIGHT WITHIN REACH.
--- NOTE | 2020-07-01 18:46 | NUR ---
TRANSPORT ARRIVED. IV CATHETER JARON#20 DC'D CATHETER INTACT NO PHLEBITIS. PT SAFELY ESCORTED OUT OF UNIT VIA WHEELCHAIR. EFFORTLESS BREATHING ON 3LNC. NO S/S OF DISTRESS.
== END 2020-07-01 18:46 | disposition home health service (06) | DRG 189 ==
LOC: ER 06:45 → TELE 06:46 → TELE-WESTW 20:35
PROVIDERS: ADMIT Hospitalist; ATTEND Internal Medicine
DX: J96.01 Acute respiratory failure with hypoxia (principal); J98.11 Atelectasis; J44.1 Chronic obstructive pulmonary disease with (acute) exacerbation; J20.9 Acute bronchitis, unspecified; E03.9 Hypothyroidism, unspecified; F41.9 Anxiety disorder, unspecified; G89.4 Chronic pain syndrome; I10 Essential (primary) hypertension; F17.210 Nicotine dependence, cigarettes, uncomplicated; F31.9 Bipolar disorder, unspecified; Z82.3 Family history of stroke; Z82.49 Family history of ischemic heart disease and other diseases of the circulatory system; Z86.73 Personal history of transient ischemic attack (TIA), and cerebral infarction without residual deficits; Z83.3 Family history of diabetes mellitus; Z88.8 Allergy status to other drugs, medicaments and biological substances; Z20.828 Contact with and (suspected) exposure to other viral communicable diseases
CPT/HCPCS: 36415; 36600; 71045; 71250; 80053; 80061; 80307; 81001; 82728; 82805; 83036; 83605; 83615; 83735; 83880; 84443; 84484; 85025; 85379; 86141; 87086; 87426; 93005; 93970; 94640; 96361; 96365; 96375; 97163; 99291; G0378; J0696